=== PATIENT | male | born 1990 | race Asian ===

== ENCOUNTER 2021-12-27 23:08 | Observation (INO) | payer OTHER ==
[2021-12-27] MEDS ORDERED: ALBUTEROL SO4 2.5/IPRATROPIUM 0.5 INH SOL 3 ML VIAL.NEB. NEB ONE (23:13)
[2021-12-27] MEDS ORDERED: MAGNESIUM SULF 50% (8.12 MEQ/2 ML-1 GM VIAL) IVPB ONE (23:14)
[2021-12-27] MEDS ORDERED: MAGNESIUM SULFATE IN WATER 2 GM/50 ML IVPB IVPB ONE (23:15)
[2021-12-27 23:49] LABS: BASO % 0.2 % (0-2.0); EOS % 10.5 % (0-4.5); HEMOGLOBIN 16.7 GM/dL (11.7-16.9); LYMPH % 19.6 % (8-40); MCH 29.6 pg (25.7-33.7); MEAN CELL VOLUME 87.2 fl (80-96); MEAN PLT VOLUME 8.8 fl (7.5-11.1); MONO % 9.7 % (3.8-10.2); PLATELET COUNT 250 10^3/uL (134-434); RBC 5.62 M/mm3 (4.00-5.60); RDW 14.1 % (11.9-15.9)
[2021-12-28 00:07] LABS: CHLORIDE 108 mmol/L (98-107); SODIUM 134 mmol/L (136-145)
[2021-12-28 00:09] LABS: ALBUMIN 3.8 g/dl (3.4-5.0); BLOOD UREA NITROGEN 17.3 mg/dL (7-18); CALCIUM 8.3 mg/dL (8.5-10.1); CO2 24 mmol/L (21-32); GLUCOSE,RANDOM 150 mg/dL (74-106)
[2021-12-28 00:12] LABS: CREATININE 1.2 mg/dL (0.55-1.3)
[2021-12-28 00:14] LABS: TOT PROT 8.6 g/dl (6.4-8.2)
[2021-12-28 00:15] LABS: ALK PHOS 64 U/L (45-117)
[2021-12-28 00:27] LABS: ANION GAP 2 MMOL/L (8-16); BILIRUBIN,TOTAL < 0.1 mg/dL (0.2-1); SGOT/AST 153 U/L (15-37); SGPT/ALT 67 U/L (13-61)
[2021-12-28 00:48] LABS: ANISOCYTOSIS 2+; MACROCYTOSIS 0; OVALOCYTE 1+
[2021-12-28 01:35] LABS: BLOOD UREA NITROGEN 17.2 mg/dL (7-18)
[2021-12-28 01:38] LABS: CREATININE 1.2 mg/dL (0.55-1.3)
[2021-12-28 03:42] LABS: ALBUMIN 4.1 g/dl (3.4-5.0)
[2021-12-28 03:45] LABS: BILIRUBIN,DIRECT 0.1 mg/dL (0.0-0.2)
[2021-12-28 03:47] LABS: BILIRUBIN,TOTAL 0.4 mg/dL (0.2-1); TOT PROT 7.5 g/dl (6.4-8.2)
[2021-12-28 06:22] VITALS: BMI 28.1
[2021-12-28] MEDS: ALBUTEROL SO4 2.5/IPRATROPIUM 0.5 INH SOL 3 ML VIAL.NEB. NEB SCH ×3 (08:27→15:54)
[2021-12-28] MEDS ORDERED: BUDESONIDE/FORMETEROL FUMARATE 160/4.5 mcg INHALER IH SCH (10:00)
[2021-12-28] MEDS ORDERED: predniSONE 20 MG TABLET (UD) PO SCH (10:00)
[2021-12-28 14:33] VITALS: BP 127/73; PULSE 101; TEMP 98.1
[2021-12-28] MEDS ORDERED: MONTELUKAST NA 5 MG TAB.CHEW PO SCH (22:00)
== END 2021-12-28 16:05 | disposition home or self-care (01) ==
LOC: JER 23:08 → JERBED 12-28 01:32 → J7W 12-28 05:52
PROVIDERS: ADMIT Hospitalist
PROC: 3E0F7GC Introduction of Other Therapeutic Substance into Respiratory Tract, Via Natural or Artificial Opening (ICD-10-PCS; principal; 2021-12-28)
PROC: 3E033GC Introduction of Other Therapeutic Substance into Peripheral Vein, Percutaneous Approach (ICD-10-PCS; 2021-12-28)
DX: J45.901 Unspecified asthma with (acute) exacerbation (principal); Z91.012 Allergy to eggs; Z91.011 Allergy to milk products; Z91.018 Allergy to other foods
CPT/HCPCS: 36415; 71045-TC-FY; 80048; 80053; 80076; 80307; 83735; 84484; 85025; 93005; 93010; 94640; 96374; 99285-25; C9803; G0378; U0003; U0005